=== PATIENT | female | born 1995 | race Caucasian/White ===

== ENCOUNTER → 2016-10-30 | Outpatient (CLI) | payer OTHER ==
--- NOTE | 2016-10-30 15:25 | REP ---
Right ankle series: Four views. History: Right ankle sprain. Findings: Four views of the right ankle demonstrate an intact ankle mortise. No fracture or subluxation is seen. No other abnormality. Impression: Negative right ankle views. Signed by Giovanni Bay MD 10/30/2016 05:11 P
== END ==
LOC: M WUC 14:36
PROVIDERS: ATTEND Physician Assistant
DX: S93.412A Sprain of calcaneofibular ligament of left ankle, initial encounter (principal); W18.30XA Fall on same level, unspecified, initial encounter; Y92.009 Unspecified place in unspecified non-institutional (private) residence as the place of occurrence of the external cause